=== PATIENT | female | born 1940 | race Caucasian/White ===

== ENCOUNTER 2018-10-27 06:20 | Emergency (ER) | payer MEDICARE ==
[~2018-10-27] VITALS: Ht 154.9 cm; Wt 86.2 kg
[2018-10-27 06:20] VITALS: BP 140/90
--- NOTE | 2018-10-27 06:20 | NUR ---
TO BED # 05 AMBULATORY
--- NOTE | 2018-10-27 06:41 | NUR ---
PT CAME IN C/O OF RINGING IN THE RIGHT EAR SINCE THIS MORNING. PT STATES "I FEEL DIZZY AND LIGHTHEADED." PT DENIES ANY PAIN. PT STATED "I USED HYDROGEN PEROXIDE TO TRY AND CLEAN MY EAR OUT." MEDHX: BREAST CANCER, HIGH CHOLESTEROL AND ANXIETY. SAFETY MEASURES IN PLACE. WAITING FOR ERMD TO EVALUATE PT.
--- NOTE | 2018-10-27 07:05 | NUR ---
Pt report given to AMARILYS Miller
--- NOTE | 2018-10-27 07:06 | NUR ---
REPORT RECEIVED FROM AMARILYS RODRIGUEZ.
[2018-10-27] MEDS ORDERED: hydrOXYzine HCL 25 MG TAB PO ONE (07:10)
[2018-10-27] MEDS ORDERED: MECLIZINE 25 MG TAB PO ONE (07:10)
[2018-10-27 08:57] VITALS: BP 156/71
--- NOTE | 2018-10-27 08:57 | NUR ---
Patient discharged with v/s stable. Written and verbal after care instructions given and explained. Patient alert, oriented and verbalized understanding of instructions. Ambulatory with steady gait. All questions addressed prior to discharge. ID band removed. Patient advised to follow up with PMD. Rx of Antivert given. Patient educated on indication of medication including possible reaction and side effects. Opportunity to ask questions provided and answered. Pt's BP is 156/71 mmHg, pt states she did not take medication for HTN and will take it while arriving home.
== END 2018-10-27 08:57 | disposition home or self-care (01) ==
LOC: MED 06:20
DX: H92.01 Otalgia, right ear (principal); F41.9 Anxiety disorder, unspecified; E78.5 Hyperlipidemia, unspecified; I10 Essential (primary) hypertension; Z85.3 Personal history of malignant neoplasm of breast
CPT/HCPCS: 99283; J8597